=== PATIENT | female | born 1950 | race Caucasian/White ===

== ENCOUNTER 2017-06-29 12:38 | Emergency (ER) | payer OTHER, MEDICAID ==
[~2017-06-29] VITALS: Ht 175.3 cm; Wt 108.9 kg
[2017-06-29 14:04] LABS: Eosinophils # (auto) 0.2 uL; Hematocrit 22.5 % (36.0-46.0); Hemoglobin 7.2 g/dL (12.2-16.2); Mean Corpuscular Hemoglobin 32.1 pg (28.0-32.0); Mean Corpuscular Hgb Conc. 31.9 g/dL (32.0-36.0); Monocytes # (auto) 1.2 uL; Red Cell Distribution Width 15.2 % (11.8-14.3)
[2017-06-29 14:07] LABS: Basophils # (auto) 0.1 uL; Basophils % (auto) 0.5 % (0.0-2.0); Eosinophils % (auto) 1.5 % (0.0-7.0); Lymphocytes % (auto) 8.4 % (10.0-50.0); Mean Corpuscular Volume 100.5 fL (80.0-100.0); Monocytes % (auto) 10.3 % (0.0-12.0); Neutrophils # (auto) 9.6 uL; Neutrophils % (auto) 79.3 % (37.0-80.0); Platelet Count (auto) 98 10^3/uL (140-450); Red Blood Cells 2.24 10^6/uL (4.0-5.20); White Blood Cell 12.2 10^3/uL (4.4-10.8)
[2017-06-29 14:21] LABS: INR 1.2 (0.9-1.15); Partial Thromboplastin Time 41.8 sec (22.64-33.71); Prothrombin Time 13.1 sec (9.37-12.3)
[2017-06-29 14:27] LABS: Alanine Aminotransferase 23 U/L (13-56); Albumin 2.1 g/dL (3.4-5.0); Alkaline Phosphatase 128 U/L (45-117); Anion Gap 7 (5-15); Aspartate Aminotransferase 68 U/L (15-37); BUN/Creatinine Ratio 20.3; Bilirubin, Total 1.6 mg/dL (0.2-1.0); Blood Urea Nitrogen 31 mg/dL (7-18); Calcium 7.3 mg/dL (8.5-10.1); Carbon Dioxide 25 mmol/L (21-32); Chloride 104 mmol/L (98-107); GFR African American 44 mL/min; GFR Non-African American 36 mL/min; Glucose 92 mg/dL (74-106); Potassium 3.9 mmol/L (3.5-5.1); Sodium 136 mmol/L (136-145); Total Protein 6.4 g/dL (6.4-8.2)
[2017-06-29] MEDS ORDERED: PIPERACILLIN-TAZOB 3.375GM 50 ML IV ONE (15:15)
[2017-06-29] MEDS ORDERED: VANCOMYCIN 1GM/250ML 250 ML IV ONE (15:15)
[2017-06-29 17:24] VITALS: BP 116/71
== END 2017-06-29 17:42 | disposition home or self-care (01) ==
LOC: ER 12:38
DX: R22.0 Localized swelling, mass and lump, head (principal); R68.84 Jaw pain; R53.1 Weakness
CPT/HCPCS: 36415; 70450; 70486; 71046; 80053; 83880; 84484; 85025; 85610; 85730; 96365; 96367; 99285; J2543; J3370